=== PATIENT | male | born 1960 | race Caucasian/White ===

== ENCOUNTER 2016-06-15 17:49 | Emergency (ER) | payer BC ==
--- NOTE | 2016-06-15 18:15 | ED.PDOC ---
History of Present Illness - General Chief Complaint: General Stated Complaint: abdominal pain Time Seen by Provider: 06/15/16 18:15 Information Source: patient, RN notes reviewed, Vital Signs reviewed, EMS notes reviewed Exam Limitations: no limitations - History of Present Illness Initial Comments: Patient stated that ate chicken fried steak yesterday then started with nausea and vomiting x2 felt better then this morning developed generalized abdominal then vomited x 1. Initially seen at [facility] labs done CBC-wnl,amylase- normal,chem panel slight elevation of liver enzymes had cholecystectomy done. Abdominal Pain Onset Location: generalized abdomen Pain Radiation: no radiation Quality: cramping, dull, intermittent, waxing/waning Timing/Duration: gone now - was given toradol prior to being sent here Improving Factors: nothing Worsening Factors: nothing Associated Symptoms: back pain Review of Systems - Review of Systems Constitutional: States: no symptoms reported EENTM: States: no symptoms reported Respiratory: States: no symptoms reported Cardiology: States: no symptoms reported Gastrointestinal/Abdominal: States: see HPI Genitourinary: States: no symptoms reported Musculoskeletal: States: no symptoms reported Skin: States: no symptoms reported Neurological: States: no symptoms reported Endocrine: States: no symptoms reported Family Medical History - Family History Father Hx Cardiac Disease: Yes Hx Family;Other: gallstones Progress - EKG/XRAY/CT CT: abd/pelvis-no acute abnormality Departure - Departure Clinical Impression: Abdominal pain of unknown cause Time of Disposition: 20:42 Disposition: Discharge to Home or Self Care Condition: Good Diet: low fat, low cholesterol, low salt diet Prescriptions: Ondansetron [Zofran Odt] 4 mg PO Q8HRS PRN #14 tab PRN Reason: Nausea/Vomiting Home Medications: Ambulatory Orders Ondansetron [Zofran Odt] 4 mg PO Q8HRS PRN #14 tab 06/15/16 Additional Instructions: RETURN TO EMERGENCY ROOM NEEDED
[2016-06-15] MEDS ORDERED: LACTATED RINGERS 1,000 ML IVS ONE (18:17)
--- NOTE | 2016-06-15 18:53 | CT ---
EXAM DESCRIPTION: CT ABDOMEN PELVIS WITH IV CONTRAST CLINICAL HISTORY: 55-year-old male with generalized abdominal pain, no nausea vomiting or diarrhea. COMPARISON: None. TECHNIQUE: CT of the abdomen and pelvis was performed following intravenous administration of contrast. Oral contrast was not administered. Multiplanar reformatted images were provided. FINDINGS: Chest: Evaluation through the lung bases reveals no focal opacity, pleural effusion or pneumothorax. Right middle lobe pulmonary micronodule measuring 3 mm. Heart size is within normal limits. No pericardial effusion. Abdomen and pelvis: Diffuse hepatic steatosis. The liver, pancreas, spleen, bilateral kidneys and bilateral adrenal glands are within normal limits. Surgical clips present at the level of the gallbladder fossa status post cholecystectomy. The vessels are patent and normal in caliber. No abdominopelvic lymph nodes are noted to be pathologically enlarged by CT measurement criteria. The bowel is within normal limits with fecal debris present throughout the large bowel. There is no abnormal bowel wall thickness or bowel dilation. No free air. No free abdominopelvic fluid collections. The appendix is within normal limits. The osseous structures are within normal limits. Large left inguinal hernia containing portion anterior superior bladder. Heterogeneously enhancing and enlarged prostate gland measuring 4.8 x 5.4 cm. IMPRESSION: 1. No specific acute intra-abdominal findings are noted to suggest etiology of the patient's abdominal pain. 2. 3 mm right middle lobe pulmonary nodule. As per Fleischner Society guidelines for follow-up and management of pulmonary nodules: For patient at low risk (minimal or absent history of smoking and of other known risk factors), no follow-up needed. For patient at high risk (history of smoking or of other known risk factors), recommend initial follow-up chest CT at 12 months; if unchanged, no further follow-up needed. 3. Large left inguinal hernia containing portion anterior superior bladder. 4. Diffuse hepatic steatosis. 5. Enlarged prostate gland. Electronically signed by: Phyllis Loya MD 06/15/2016 18:50
[2016-06-15 18:56] VITALS: TEMP 99.2
[2016-06-15] MEDS ORDERED: ONDANSETRON INJ 4 MG/2 ML VIAL IV ONE (19:24)
[2016-06-15 19:43] VITALS: O2SAT 98
[2016-06-15 21:09] VITALS: BP 100/68
== END 2016-06-15 21:09 | disposition home or self-care (01) ==
LOC: ER 17:49
DX: R10.9 Unspecified abdominal pain (principal); R11.2 Nausea with vomiting, unspecified
CPT/HCPCS: 74177; 81001; 93005; J2060; J2405; J7120